=== PATIENT | male | born 1960 | race Caucasian/White ===

== ENCOUNTER → 2017-03-17 | Outpatient (CLI) | payer BC ==
[~2017-03-17] MED LIST: ASPI325T6 PO; ASPIRIN 81M81 MG/TA2 PO; ASPIRIN E.C. 8181 MG PO; CEPHALEXIN500 M1 PO; CRESTOR20 MG PO; EFFIENT10 MG PO; JANUMET 1000 MG1 TA1 PO; JANUVIA 100MG100 MG PO; LEVEMIR100 U/ML SQ; NITRO-DUR0.4 MG/PAT TD; NITROSTAT0.4 MG/TAB SL; NORCO 325 MG-51 TAB PO; NOVOLOG 100U100 U/M1 SQ; TOPROL XL 25MG25 MG PO; TYLENOL 325MG325 MG PO; ZESTRIL 10MG10 MG PO; ZESTRIL 20MG TA20 MG PO
== END ==
LOC: COL.VAS 13:58
DX: I35.0 Nonrheumatic aortic (valve) stenosis (principal); I35.1 Nonrheumatic aortic (valve) insufficiency; I28.8 Other diseases of pulmonary vessels

== ENCOUNTER 2017-04-18 07:58 | Day surgery (SDC) | payer BC ==
[~2017-04-18] VITALS: Ht 172.7 cm; Wt 110.0 kg
[2017-04-18] VITALS (11 sets, daily range): BP systolic 114–161; BP diastolic 68–94; PULSE 59–61; TEMP 97.6–98.6
[~2017-04-18 07:58] MED LIST changes: -ASPIRIN E.C. 8181 MG PO; -JANUVIA 100MG100 MG PO; -ZESTRIL 20MG TA20 MG PO
[2017-04-18] MEDS ORDERED: ASPIRIN E.C. 8181 MG PO (08:33)
[2017-04-18] MEDS ORDERED: ZESTRIL 20MG TA20 MG PO (08:34)
[2017-04-18] MEDS ORDERED: TOPROL XL 25MG25 MG PO (08:37)
[2017-04-18] MEDS ORDERED: JANUVIA 100MG100 MG PO (08:40)
[2017-04-18 08:56] LABS: HEMOGLOBIN 12.6 g/dl (13.5-18.0); MEAN CELL VOLUME 89 fl (80.0-100.0); MEAN CORPUSCULAR HEMOGLOBIN 30 pg (27.0-31.0); MEAN CORPUSCULAR HGB CONC 34 g/dl (33.0-37.0); MEAN PLATELET VOLUME 11.1 fl (7.4-10.4); PLATELET COUNT 220 K/mm3 (130-400); RED BLOOD COUNT 4.14 M/mm3 (4.20-5.60); REDCELL DISTRIBUTION WIDTH-CV 13.4 % (11.5-14.5); WHITE BLOOD COUNT 6.6 K/mm3 (4.8-10.8)
[2017-04-18 08:58] LABS: PROTHROMBIN TIME 10.9 SECONDS (9.7-12.8)
[2017-04-18 09:03] LABS: HEMATOCRIT 36.9 % (42.0-52.0)
[2017-04-18 09:08] LABS: CALCIUM 8.8 mg/dL (8.4-10.2); CREATININE, serum 2.29 mg/dL (0.66-1.25); POTASSIUM 4.1 mmol/L (3.4-5.0)
== END 2017-04-18 17:28 | disposition home or self-care (01) ==
LOC: COL.CAR 07:58
PROVIDERS: Internal Medicine Cardiovascular Disease
DX: I25.10 Atherosclerotic heart disease of native coronary artery without angina pectoris (principal); I08.3 Combined rheumatic disorders of mitral, aortic and tricuspid valves; I10 Essential (primary) hypertension; E11.9 Type 2 diabetes mellitus without complications; E78.5 Hyperlipidemia, unspecified; G47.33 Obstructive sleep apnea (adult) (pediatric); Z79.4 Long term (current) use of insulin; Z95.0 Presence of cardiac pacemaker; Z95.5 Presence of coronary angioplasty implant and graft; Z82.49 Family history of ischemic heart disease and other diseases of the circulatory system
CPT/HCPCS: C1725; C1760; C1769; C1894; J2250; J3010

== ENCOUNTER → 2017-04-28 | Outpatient (CLI) | payer BC ==
[~2017-04-28] MED LIST changes: +ASPIRIN E.C. 8181 MG PO; +JANUVIA 100MG100 MG PO; +ZESTRIL 20MG TA20 MG PO
== END ==
LOC: COL.PUL 04-26 10:00
DX: I25.119 Atherosclerotic heart disease of native coronary artery with unspecified angina pectoris (principal); I35.0 Nonrheumatic aortic (valve) stenosis; G47.33 Obstructive sleep apnea (adult) (pediatric)

== ENCOUNTER 2018-11-11 11:15 | Emergency (ER) | payer BC ==
[~2018-11-11] VITALS: Ht 172.7 cm; Wt 115.9 kg
[2018-11-11 11:19] VITALS: BP 144/65; TEMP 97.6
[2018-11-11] MEDS ORDERED: COUMADIN 77.5 MG/TAB PO (11:33)
[2018-11-11] MEDS ORDERED: COUMADIN 5MG5 MG/TAB PO (11:33)
[2018-11-11] MEDS ORDERED: MEDROL 4MG DOSPA4 MG PO (13:42)
[2018-11-11] MEDS ORDERED: NORCO 325 MG-51 TAB PO (13:42)
[2018-11-11] MEDS ORDERED: FLEXERIL 1010 MG/TAB PO (13:42)
[2018-11-11 13:49] VITALS: PULSE 79
== END 2018-11-11 13:50 | disposition home or self-care (01) ==
LOC: COL.ER 11:15
DX: M54.41 Lumbago with sciatica, right side (principal); I10 Essential (primary) hypertension; I25.10 Atherosclerotic heart disease of native coronary artery without angina pectoris; E11.9 Type 2 diabetes mellitus without complications; I48.91 Unspecified atrial fibrillation; E78.5 Hyperlipidemia, unspecified; Z79.4 Long term (current) use of insulin; Z79.01 Long term (current) use of anticoagulants; Z79.82 Long term (current) use of aspirin; Z95.1 Presence of aortocoronary bypass graft
CPT/HCPCS: J1885

== ENCOUNTER 2018-12-29 06:58 | Day surgery (SDC) | payer BC ==
[~2018-12-29] VITALS: Ht 172.7 cm; Wt 107.8 kg
[~2018-12-29 06:58] MED LIST changes: +COUMADIN 5MG5 MG/TAB PO; +COUMADIN 77.5 MG/TAB PO; +FLEXERIL 1010 MG/TAB PO; +MEDROL 4MG DOSPA4 MG PO
[2018-12-29 07:39] VITALS: BP 140/90; PULSE 84; TEMP 98
[2018-12-29 08:50] VITALS: BP 111/68; PULSE 73; TEMP 97
--- NOTE | 2018-12-29 08:50 | NUR ---
TO BAY 2 VIA CART FROM ENDO ROOM, PT WALKED TO CHAIR, CALL LIGHT IN REACH, TAKES OWade AND NAHUN
[2018-12-29 09:05] VITALS: BP 105/94; PULSE 76
[2018-12-29 09:20] VITALS: BP 127/73; PULSE 73
--- NOTE | 2018-12-29 09:27 | NUR ---
CON'T SAME, NO REQUESTS TAKES JUICE, WILL CALL FOR RIDE WHEN DISCHARGE
[2018-12-29 09:35] VITALS: BP 125/66; PULSE 74
--- NOTE | 2018-12-29 09:35 | NUR ---
DR VÁSQUEZ HERE TO SEE PT, PT UP AND DRESSED, INT D'CD INTACT
--- NOTE | 2018-12-29 10:00 | NUR ---
REVIEWED DISCHARGE INST. WITH PT ON ACTIVITY, PRECAUTIONS AND FOLLOWUP WITH VERBAL UNDERSTANDING. PT DISCHARGED VIA W/C TO [facility] CAR
== END 2018-12-29 10:00 | disposition home or self-care (01) ==
LOC: SDCO 06:58
DX: Z12.11 Encounter for screening for malignant neoplasm of colon (principal); D12.5 Benign neoplasm of sigmoid colon; K57.30 Diverticulosis of large intestine without perforation or abscess without bleeding; E78.00 Pure hypercholesterolemia, unspecified; I25.10 Atherosclerotic heart disease of native coronary artery without angina pectoris; G47.33 Obstructive sleep apnea (adult) (pediatric); I08.3 Combined rheumatic disorders of mitral, aortic and tricuspid valves; I12.9 Hypertensive chronic kidney disease with stage 1 through stage 4 chronic kidney disease, or unspecified chronic kidney disease; E11.22 Type 2 diabetes mellitus with diabetic chronic kidney disease; N18.3 Chronic kidney disease, stage 3 (moderate); Z79.01 Long term (current) use of anticoagulants; Z95.2 Presence of prosthetic heart valve; Z95.1 Presence of aortocoronary bypass graft; Z79.4 Long term (current) use of insulin
CPT/HCPCS: J2704; J7030

== ENCOUNTER 2019-09-20 07:59 | Day surgery (SDC) | payer BC ==
[~2019-09-20] VITALS: Ht 172.7 cm; Wt 115.3 kg
[2019-09-20] VITALS (14 sets, daily range): BP systolic 126–158; BP diastolic 60–87; PULSE 59–66; TEMP 98.2
[2019-09-20 08:47] LABS: MEAN CELL VOLUME 90 fl (80.0-100.0); MEAN CORPUSCULAR HGB CONC 33 g/dl (33.0-37.0); MEAN PLATELET VOLUME 10.9 fl (7.4-10.4); PLATELET COUNT 152 K/mm3 (130-400); RED BLOOD COUNT 2.97 M/mm3 (4.20-5.60); REDCELL DISTRIBUTION WIDTH-CV 13.1 % (11.5-14.5)
[2019-09-20 08:48] LABS: HEMATOCRIT 26.8 % (42.0-52.0); HEMOGLOBIN 8.8 g/dl (13.5-18.0); MEAN CORPUSCULAR HEMOGLOBIN 30 pg (27.0-31.0)
[2019-09-20 08:50] LABS: INR 1.1 (0.8-3.0); PROTHROMBIN TIME 12.3 SECONDS (9.7-12.8)
[2019-09-20 08:53] LABS: PARTIAL THROMBOPLASTIN TIME 32.2 SECONDS (26.0-37.0)
[2019-09-20 09:08] LABS: CALCIUM 6.9 mg/dL (8.4-10.2); CREATININE, serum 7.19 (0.66-1.25); POTASSIUM 3.8 mmol/L (3.4-5.0)
[2019-09-20] MEDS ORDERED: CALCITRIOL PO (09:23)
--- NOTE | 2019-09-20 09:27 | NUR ---
Pt to procedure,report to Shellie Lezama.
--- NOTE | 2019-09-20 09:35 | NUR ---
SEE MERGE FOR MEDICATION ADMINISTRATION TIMES INTRA AND POST SEDATION ASSESSMENTS.
--- NOTE | 2019-09-20 10:18 | NUR ---
Report received from FERNANDA Suarez.Will await pts return from procedure.
--- NOTE | 2019-09-20 10:36 | NUR ---
This RN transporting pt from cath lab tech to 14. On arrival to , pt with episode of nausea/vomiting. FERNANDA Parkinson EU in room at this time. Pt flexing right leg and rolling while vomiting; pressure held on right groin access site by this RN while pt vomiting. Following episode, pt reports feeling better. VS's WNL, rhythm noted SR with BBB on room monitor. Right groin site assessed and found without bleeding or hematoma; surrounding tissue soft. Right DP pulse +2. Bedside handoff to FERNANDA Parkinson.
--- NOTE | 2019-09-20 10:57 | NUR ---
Pt arrived to room 14 at 103 via bed with JerRn warehouse general laborer nurse.Pt vomited while both nurses presentt in room.Tele box recieved from ICU to assist with monitoring.VSS,see flowsheet.Per pt report he felt better after vomiting.Dressing observed as clean,dry intact, and soft to touch.
--- NOTE | 2019-09-20 15:15 | NUR ---
Discharge instructions given to pt.Pt verbalizes understanding.INT removed,cathetr tip intact.pt escorted out via wheelchair and assisted into [employer].
== END 2019-09-20 15:47 | disposition home or self-care (01) ==
LOC: COL.CAR 07:59
PROVIDERS: Internal Medicine Cardiovascular Disease
DX: I25.10 Atherosclerotic heart disease of native coronary artery without angina pectoris (principal); I35.0 Nonrheumatic aortic (valve) stenosis; E11.22 Type 2 diabetes mellitus with diabetic chronic kidney disease; I12.9 Hypertensive chronic kidney disease with stage 1 through stage 4 chronic kidney disease, or unspecified chronic kidney disease; N18.9 Chronic kidney disease, unspecified; Z95.5 Presence of coronary angioplasty implant and graft; G47.33 Obstructive sleep apnea (adult) (pediatric); Z95.1 Presence of aortocoronary bypass graft; E78.5 Hyperlipidemia, unspecified; Z95.2 Presence of prosthetic heart valve; Z95.0 Presence of cardiac pacemaker; Z79.4 Long term (current) use of insulin; Z79.899 Other long term (current) drug therapy; Z82.49 Family history of ischemic heart disease and other diseases of the circulatory system
CPT/HCPCS: J1644; J2250; J2405; J3010

== ENCOUNTER 2020-08-03 16:30 | Emergency (ER) | payer BC ==
[~2020-08-03] VITALS: Ht 172.7 cm; Wt 96.4 kg
[~2020-08-03 16:30] MED LIST changes: +CALCITRIOL PO
[2020-08-03 16:55] VITALS: TEMP 101
[2020-08-03 17:34] LABS: HEMATOCRIT 37.4 % (42.0-52.0); HEMOGLOBIN 11.6 g/dl (13.5-18.0); MEAN CELL VOLUME 88 fl (80.0-100.0); MEAN CORPUSCULAR HEMOGLOBIN 27 pg (27.0-31.0); MEAN CORPUSCULAR HGB CONC 31 g/dl (33.0-37.0); MEAN PLATELET VOLUME 10.7 fl (7.4-10.4); PLATELET COUNT 221 K/mm3 (130-400); RED BLOOD COUNT 4.25 M/mm3 (4.20-5.60); REDCELL DISTRIBUTION WIDTH-CV 13.5 % (11.5-14.5)
[2020-08-03 17:35] LABS: INR 1.4 (0.8-3.0); PROTHROMBIN TIME 15.3 SECONDS (9.7-12.8)
[2020-08-03] MEDS ORDERED: PROGRAF 1MG1 MG PO (17:41)
[2020-08-03] MEDS ORDERED: MYFORTIC180 MG PO (17:43)
[2020-08-03] MEDS ORDERED: BACTRIM 400 MG-1 TAB PO (17:44)
[2020-08-03] MEDS ORDERED: PREDNISONE10 MG PO (17:44)
[2020-08-03] MEDS ORDERED: PEPCID 20MG TAB20 MG PO (17:46)
[2020-08-03 17:53] LABS: BILIRUBIN,TOTAL 0.9 mg/dL (0.0-1.0); CALCIUM 9.1 mg/dL (8.4-10.2); CREATININE, serum 1.35 (0.66-1.25); POTASSIUM 4.4 mmol/L (3.4-5.0); TOTAL PROTEIN 7.2 gm/dL (6.4-8.2)
[2020-08-03 18:02] LABS: TROPONIN-I 0.021 ng/mL (0.000-0.035)
[2020-08-03 18:07] LABS: C-REACTIVE PROTEIN 24.3 mg/dL (0.0-0.9)
[2020-08-03 18:27] LABS: BAND 3 % (0-10); HYPOCHROMIA 2+; LYMPHOCYTE 19 % (20.0-51.0); METAMYELOCYTE 5 % (0-0); NEUTROPHILS 66 % (42.0-75.2)
[2020-08-03 18:28] LABS: PLATELET ESTIMATE NORMAL (NORMAL)
[2020-08-03 21:40] VITALS: BP 137/51; PULSE 73
== END 2020-08-03 21:43 | disposition short-term general hospital (02) ==
LOC: COL.ER 16:30
PROVIDERS: Emergency Medicine
DX: I70.263 Atherosclerosis of native arteries of extremities with gangrene, bilateral legs (principal); I38 Endocarditis, valve unspecified; E11.52 Type 2 diabetes mellitus with diabetic peripheral angiopathy with gangrene; I10 Essential (primary) hypertension; R50.9 Fever, unspecified; Z79.4 Long term (current) use of insulin; Z94.0 Kidney transplant status; Z79.82 Long term (current) use of aspirin
CPT/HCPCS: J2185; J2405; J3370; J7030; J7040

== ENCOUNTER → 2020-11-07 | Outpatient (REF) | payer BC ==
[~2020-11-07] MED LIST changes: +BACTRIM 400 MG-1 TAB PO; +MYFORTIC180 MG PO; +PEPCID 20MG TAB20 MG PO; +PREDNISONE10 MG PO; +PROGRAF 1MG1 MG PO
== END ==
LOC: ZCOL.LAB 18:05
DX: T81.30XA Disruption of wound, unspecified, initial encounter (principal)

== ENCOUNTER → 2020-12-03 | Outpatient (CLI) | payer BC ==
[~2020-12-03] MED LIST changes: +FLEXERIL5 MG PO; +LOPRESSOR 225 MG/TAB PO; +PLAVIX 75MG TAB75 MG PO
== END ==
LOC: ZCOL.LAB 16:08
DX: B99.9 Unspecified infectious disease (principal)

== ENCOUNTER 2020-12-19 08:14 | Day surgery (SDC) | payer BC ==
[~2020-12-19] VITALS: Ht 172.7 cm; Wt 94.2 kg
[2020-12-19] VITALS (12 sets, daily range): BP systolic 98–127; BP diastolic 36–60; PULSE 58–80; TEMP 97.4–98.4
[~2020-12-19 08:14] MED LIST changes: -FLEXERIL5 MG PO; -LOPRESSOR 225 MG/TAB PO; -PLAVIX 75MG TAB75 MG PO
[2020-12-19 08:46] LABS: HEMATOCRIT 42.3 % (42.0-52.0); HEMOGLOBIN 13.1 g/dl (13.5-18.0); MEAN CELL VOLUME 88 fl (80.0-100.0); MEAN CORPUSCULAR HEMOGLOBIN 27 pg (27.0-31.0); MEAN CORPUSCULAR HGB CONC 31 g/dl (33.0-37.0); MEAN PLATELET VOLUME 11.1 fl (7.4-10.4); PLATELET COUNT 170 K/mm3 (130-400); RED BLOOD COUNT 4.83 M/mm3 (4.20-5.60); REDCELL DISTRIBUTION WIDTH-CV 16.4 % (11.5-14.5)
[2020-12-19] MEDS ORDERED: PLAVIX 75MG TAB75 MG PO (08:46)
[2020-12-19] MEDS ORDERED: LOPRESSOR 225 MG/TAB PO (08:47)
[2020-12-19 08:55] LABS: INR 1.1 (0.8-3.0); PROTHROMBIN TIME 12.6 SECONDS (9.7-12.8)
[2020-12-19 08:56] LABS: CALCIUM 9.8 mg/dL (8.4-10.2); CREATININE, serum 1.22 (0.66-1.25); POTASSIUM 5.1 mmol/L (3.4-5.0)
--- NOTE | 2020-12-19 10:07 | NUR ---
SEE MERGE FOR ALL MEDICATION ADMINISTRATION TIMES, INTRA AND POST SEDATION ASSESSMENT
--- NOTE | 2020-12-19 12:10 | NUR ---
PATIENT ARRIVED TO ROOM 329 VIA BED. PATIENT IS A&O. POST-OP VSS. LEFT ARM TO SLING. LEFT SHOULDER GAUZE & PAPER TAPE DRESSING REINFORCED. ICE PACK IN PLACE TO SHOULDER. PATIENT DENYING PAIN AT THIS TIME. PATIENT TOLERATING CLEAR LIQUIDS. DIET ADVANCED PER PROTOCOL. CALL LIGHT WITHIN REACH. NO OTHER NEEDS AT THIS TIME.
--- NOTE | 2020-12-19 13:02 | NUR ---
ALEX WITH CARDIOPULMONARY NOTIFIED OF EKG ORDER. X-RAY CALLED AND NOTIFIED OF X-RAY ORDER.
--- NOTE | 2020-12-19 16:55 | NUR ---
PATIENT POST-OP VSS AND COMPLETE. SLING TO LEFT ARM. SCANT SHADING PRESENT ON DRESSING. PATIENT EDUCATED ON LEFT ARM RESTRICTION. CALL LIGHT WITHIN REACH. NO NEEDS AT THIS TIME.
--- NOTE | 2020-12-19 19:00 | NUR ---
PATIENT SITTING UP IN BED WITH MOTHER PRESENT AT THE BEDSIDE. SLIGHT SHADING PRESENT ON LEFT SHOULDER DRESSING. PATIENT TOLERATING DIET AND VOIDING WITHOUT DIFFICULTIES. PATIENT REPORTS SLIGHT ACHY DISCOMFORT IN SHOULDER. ICE PACK IN PLACE. CALL LIGHT WITHIN REACH. NO OTHER NEEDS AT THIS TIME. REPORT GIVEN TO FERNANDA MERCEDES.
--- NOTE | 2020-12-19 21:30 | NUR ---
PT IN BED, MOTHER REMAINS AT BEDSIDE UNTIL REMINDED OF VISITING HOURS. PT HAS SL TO LEFT AC, FLUSHES WELL, ANTIBIOTIC GIVEN. HAS SHADOWING TO LEFT SHOULDER DRSG, HAS LEFT ARM OUT OF SLING. INSTRUCTED PT TO KEEP HOB AT 30 DEGREES AND WEAR THE SLING. VERBALIZED UNDERSTANDING.
--- NOTE | 2020-12-19 23:32 | NUR ---
PT ASKING FOR PAIN MEDS, GIVEN TYLENOL 650MG PO AT THIS TIME. AGAIN PT HAS BED FLAT AND ARM OUT OF SLING. NOTED MORE BRUISING TO SITE. REPLACED ICE PACK AT THIS TIME.
[2020-12-20 00:06] VITALS: BP 112/35; PULSE 59; TEMP 97.8
[2020-12-20 03:52] VITALS: BP 115/41; PULSE 81; TEMP 98.2
--- NOTE | 2020-12-20 05:30 | NUR ---
IV ANTIBIOTIC GIVEN. ICE PACK REPLACED TO LEFT SHOULDER.
[2020-12-20 06:56] LABS: BASO % 0.4 % (0.0-2.0); EOS # 0.1 (0.0-0.7); EOS % 1.3 % (0-4.0); GRAN # 6.3 (1.4-6.5); GRAN % 74.6 % (42.2-75.2); HEMATOCRIT 38.6 % (42.0-52.0); HEMOGLOBIN 11.7 g/dl (13.5-18.0); LYMPH % 11.4 % (20.0-51.0); MEAN CELL VOLUME 89 fl (80.0-100.0); MEAN CORPUSCULAR HEMOGLOBIN 27 pg (27.0-31.0); MEAN CORPUSCULAR HGB CONC 30 g/dl (33.0-37.0); MEAN PLATELET VOLUME 12.5 fl (7.4-10.4); MONO % 12.1 % (1.7-9.3); PLATELET COUNT 155 K/mm3 (130-400); RED BLOOD COUNT 4.34 M/mm3 (4.20-5.60); REDCELL DISTRIBUTION WIDTH-CV 16.5 % (11.5-14.5)
[2020-12-20 07:10] LABS: ALBUMIN 3.5 gm/dL (3.5-5.0); BILIRUBIN,TOTAL 0.1 mg/dL (0.0-1.0); CREATININE, serum 1.17 (0.66-1.25); POTASSIUM 4.2 mmol/L (3.4-5.0); TOTAL PROTEIN 6.1 gm/dL (6.4-8.2)
[2020-12-20 07:30] VITALS: BP 127/63; PULSE 60; TEMP 98.1
--- NOTE | 2020-12-20 09:26 | NUR ---
PACER INTERROGATED ORDERED. CHEST XR COMPLETE. SEE CHART FOR DETAILS. PT RESTING IN BED. ASSESSMENTS COPLETE. CHEST WOUND CDI WITH GAUZE AND TAPE OVER INCISION. PT DENIES NEEDS AT THIS TIME. PLAN ON DISCHARGE LATER TODAY.
[2020-12-20] MEDS ORDERED: CEPHALEXIN500 M1 PO (11:07)
[2020-12-20 11:41] VITALS: BP 121/54; PULSE 62; TEMP 97.7
--- NOTE | 2020-12-20 12:30 | NUR ---
DISCHARGE INSTRUCTIONS REVIEWED WITH PT AND . QUESTIONS SOLICITED AND ANSWERED. PT WANTS TO EAT LUNCH PRIOR TO DISCHARGE. PT WILL CALL STAFF WHEN READY TO LEAVE.
[2021-06-08] MEDS ORDERED: FLEXERIL5 MG PO (19:33)
== END 2020-12-20 13:12 | disposition home or self-care (01) ==
LOC: COL.CAR 08:14 → JCC 12:27 → COL.CAR 12-20 13:12
PROVIDERS: Internal Medicine Cardiovascular Disease
DX: Z45.010 Encounter for checking and testing of cardiac pacemaker pulse generator [battery] (principal); I25.10 Atherosclerotic heart disease of native coronary artery without angina pectoris; Z95.1 Presence of aortocoronary bypass graft; E11.9 Type 2 diabetes mellitus without complications; G47.33 Obstructive sleep apnea (adult) (pediatric); Z94.0 Kidney transplant status; I49.5 Sick sinus syndrome
CPT/HCPCS: OP; C1769; C1894; C1898; C1900; C2621; J0690; J1815; J2250; J3010; J7030; J7507; J7512; Q9967